=== PATIENT | female | born 1975 | race Asian ===

== ENCOUNTER 2023-06-21 09:25 | Outpatient (AMB) | payer SELFPAY ==
--- NOTE | 2023-06-21 09:25 | MHC.OFFWIV ---
Intake Vital Signs 06/21/23 09:26 Height 5 ft 2 in Weight 119 lb BMI 21.8 BP 130/80 Blood Pressure Location Lt brachial Position Sitting Pulse 76 Pulse Source Pulse Oximeter Temp 97.5 F Temp Source Temporal Artery Scan Pulse Oximetry (%) 99 Oxygen Delivery Method Room Air Intake Visit Reasons: FIRE LOOKOUT School PE/OK per Dr. [place]aco Intake Note: pt is here today for school PE Patient Tobacco Use Status: Never used Tobacco Allergies No Known Allergies Allergy (Verified 06/21/23 09:29) Do you need a note to return to daycare/school/sports/work: Yes HPI HPI Comments History of Present Illness Details Patient is a 48-year-old female who I am meeting for the 1st time. Patient is here for physical exam [facility] Social History Patient Tobacco Use Status: Never used Tobacco Review of Systems Const All systems reviewed & are unremarkable except as noted in HPI and below Physical Exam Vital Signs: Last Vital Signs Temp 97.5 F 06/21/23 09:26 Pulse 76 06/21/23 09:26 BP 130/80 06/21/23 09:26 Pulse Ox 99 06/21/23 09:26 Oxygen Delivery Method Room Air 06/21/23 09:26 BMI result Body Mass Index 21.8 Const Other: Appearance: Alert.? Oriented X3.? No acute distress.? Head: Normocephalic, atraumatic, no step-offs or deformities Eyes: Pupils equal, round and reactive to light.? ENT: Pharynx normal.?TM intact and pearly mata. Neck: Normal inspection.? Neck supple.? CVS: Normal heart rate and rhythm.? Pulses normal.? Respiratory: No respiratory distress.? Breath sounds normal.? Abdomen: Soft and nontender.? Skin: Skin warm and dry.? Normal skin color.? Normal skin turgor.? Extremities: No lower extremity edema.? No calf ttp. 5/5 strength to bilateral upper and lower extremities Back: No midline tenderness, no C-spine tenderness, full range of motion, no CVA tenderness bilaterally Neuro: Oriented X 3.? No motor deficit.? No sensory deficit. CN 2-12 intact General: cooperative and no acute distress Orientation/consciousness: patient oriented x3 Limitations: no limitations HEENT Head: Yes normal to inspection Ears: TM's normal bilaterally General nose exam: Normal external nose present Face and sinus: Yes normal facial exam Mouth: Normal oral and palatal mucosa present Throat: Yes posterior oropharynx normal Eyes Pupils: Equal, round and reactive pupils present EOM: EOMs intact bilaterally Direct Ophthalmoscopy: normal light reflex and no photophobia Neuro General: patient oriented x3 Cranial nerves: Yes Equal, round and reactive pupils present Assessment & Plan Assessment & Plan (1) Encounter for physical examination of student: Comment: Will also draw T spot and surface antibody hep B Code(s): Z00.8 - Encounter for other general examination Plan: Follow-up with PCP Plan Follow up with lab results. Orders: Orders T Spot TB Today Z11.1 - Encounter for screening for respiratory tuberculosis Hepatitis B Surface Antibody Today Z11.59 - Encounter for screening for other viral diseases Coding Level of Care Code Sports/Work/School Physical Diagnoses Encounter for physical examination of student Z00.8 Time Spent (min) 30
[2023-06-21 09:26] VITALS: BP 130/80; PULSE 76; TEMP 36.4; O2SAT 99; BMI 21.8
== END 2023-06-21 10:32 | disposition home or self-care (01) ==
PROVIDERS: Visit Provider Nurse Practitioner Primary Care
DX: Z00.8 Encounter for other general examination (principal)
CPT/HCPCS: 99080

== ENCOUNTER 2023-06-21 10:06 | Outpatient (REF) | payer OTHER, SELFPAY ==
[2023-06-22 08:16] LABS: HBS Num1 3.13 mIU/mL (0-7.99); ~Hepatitis B Surface Antibody NONREACTIVE (Nonreactive)
[2023-06-23 22:39] LABS: TS Negative Control Passed; TS Panel A 0; TS Panel B 0; TS Positive Control Passed; TSpotTB Negative (Negative)
== END 2023-06-21 10:07 | disposition home or self-care (01) ==
LOC: HO.HMGCLDS 10:06
PROVIDERS: Visit Provider Nurse Practitioner Primary Care
DX: Z11.1 Encounter for screening for respiratory tuberculosis (principal); Z11.59 Encounter for screening for other viral diseases
CPT/HCPCS: 36415; 86481; 86706